=== PATIENT | female | born 1985 | race Caucasian/White ===

== ENCOUNTER 2016-04-25 11:37 | Emergency (ER) | payer BC, MEDICAID ==
--- NOTE | 2016-04-25 11:51 | EDM.PDOC ---
ED HPI Skin/Rash - General Chief Complaint: Skin Complaint Stated Complaint: FISH HOOK STUCK IN FINGER ON RT HAND Time Seen by Provider: 04/25/16 11:51 Source: Reports: Patient History Limitations: Reports: No limitations - History of Present Illness INITIAL COMMENTS - FREE TEXT/NARRATIVE: HISTORY AND PHYSICAL: [30-year-old female with a fishhook to the pad of the fourth finger of her right hand] History of Present Illness: [To the floor with her children are in her hand across the floor and a fishhook in the carpet went into her finger] Review of Systems: As per history of present illness and below otherwise all systems reviewed and negative. Past medical history: As per history of present illness and as reviewed below otherwise noncontributory. Surgical history: As per history of present illness and as reviewed below otherwise noncontributory. Social history: No reported history of drug or alcohol abuse. Family history: As per history of present illness and as reviewed below otherwise noncontributory. Physical exam: HEENT: Atraumatic, normocehpalic, pupils reactive, negative for conjunctival pallor or scleral icterus, mucous membranes moist, throat clear, neck supple, nontender, trachea midline. Lungs: Clear to auscultation, breath sounds equal bilaterally, chest non tender. Heart: S1S2, regular, negative for clicks, rubs, or JVD. Abdomen: Soft, nondistended, nontender. Negative for masses or hepatossplenmegaly. Negative for costovertebral tenderness. Pelvis: Stable nontender. Genitourinary: Deferred. Rectal: Deferred Extremities: Atraumatic, negative for cords or calf pain. Neurovascular unremarkable. Neuro: Awake, alert, oriented. Cranial nerves II through XII unremarkable. Cerebellum unremarkable. Motor and sensory unremarkable throughout. Exam nonfocal. Diagnostics: [] Therapeutics: Lidocaine injection] Impression: [[place] removal] Plan: [Home keep area clean Signs of infection heat redness swelling and pustular material is seen in the] Definitive disposition and diagnosis as appropriate pending reevaluation and review of above. Timing: Reports: still present Location, Skin: Reports: upper extremity, right Quality: Reports: Stabbing Severity: moderate Known Identified Source: yes (fish hook to finger pad) Place of Occurrence: home Sick Contact: no Associated Symptoms: Reports: no other symptoms Similar Symptoms Previously: no Recent Medical Care: no - Related Data Allergies Allergy/AdvReac Type Severity Reaction Status Date / Time ibuprofen Allergy Nausea and Verified 06/18/14 20:24 Vomiting Home Meds: Ambulatory Orders Medication Instructions Recorded Confirmed . [No Known Home Meds] 04/25/16 04/25/16 Past Medical History - Past Health History Medical/Surgical History: Denies Medical/Surgical History ED ROS GENERAL - Review of Systems Review Of Systems: ROS reveals no pertinent complaints other than HPI. ED EXAM, SKIN/RASH Exam: See Below (se dictation) ED SKIN PROCEDURES - Foreign Body Removal Consent Obtained:: patient Performing Doctor:: Leslie Barroso Foreign Body Other Location Comment:: Pad of the Fourth finger right hand Anesthesia Type: Local Complications:: No Course - Vital Signs Last Recorded V/S: Last Vital Signs Temp 36.4 C 04/25/16 11:57 Pulse 80 04/25/16 11:57 Resp 16 04/25/16 11:57 BP 129/80 04/25/16 11:57 Pulse Ox 96 04/25/16 11:57 - Orders/Labs/Meds Meds: Medications Discontinued Medications Generic Name Dose Route Start Last Admin Trade Name Freq PRN Reason Stop Dose Admin Lidocaine HCl 20 ml 04/25/16 11:56 04/25/16 12:04 Xylocaine 1% INJECT 04/25/16 11:57 20 ml ONETIME ONE Administration Departure - Departure Time of Disposition: 12:14 Disposition: Home, Self-Care 01 Condition: good Clinical Impression: [place] injury to finger Qualifiers: Encounter type: initial encounter Laterality: right Qualified Code(s): S69.91XA - Unspecified injury of right wrist, hand and finger(s), initial encounter Forms: ED Department Discharge Additional Instructions: The following information is given to patients seen in the emergency department who are being discharged to home. This information is to outline your options for follow-up care. We provide all patients seen in our emergency department with a follow-up referral. The need for follow-up, as well as the timing and circumstances, are variable depending upon the specifics of your emergency department visit. If you don't have a primary care physician on staff, we will provide you with a referral. We always advise you to contact your personal physician following an emergency department visit to inform them of the circumstance of the visit and for follow-up with them and/or the need for any referrals to a consulting specialist. The emergency department will also refer you to a specialist when appropriate. This referral assures that you have the opportunity for followup care with a specialist. All of these measure are taken in an effort to provide you with optimal care, which includes your followup. Under all circumstances we always encourage you to contact your private physician who remains a resource for coordinating your care. When calling for followup care, please make the office aware that this follow-up is from your recent emergency room visit. If for any reason you are refused follow-up, please contact the [facility] emergency department at and asked to speak to the emergency department charge nurse. Keep area clean and dry and use a Band-Aid Signs of infection redness, heat, swelling, pustular material be seen for evaluation, Followup with her PCP
[2016-04-25] MEDS ORDERED: Lidocaine 1% 20 ML MDV INJECT ONE (11:56)
[2016-04-25 11:58] VITALS: BP 129/80
== END 2016-04-25 12:26 | disposition home or self-care (01) ==
LOC: MW.ED 11:37
DX: S60.454A Superficial foreign body of right ring finger, initial encounter (principal); W45.8XXA Other foreign body or object entering through skin, initial encounter
CPT/HCPCS: 99282